=== PATIENT | male | born 1970 | race American Indian/Alaskan Native ===

== ENCOUNTER 2017-10-05 11:21 | Emergency (ER) | payer SELFPAY ==
[2017-10-05 11:38] VITALS: BP 115/72
[2017-10-05] MEDS ORDERED: FUL-GLO OP ONE ×2 (13:46→13:48)
[2017-10-05] MEDS ORDERED: BOOSTRIX IM ONE (13:46)
[2017-10-05] MEDS ORDERED: BSS 1 DROPS, TETRACAINE 0.5% 1 DROPS, FUL-GLO 0.6 MG OS ONE (13:46)
[2017-10-05] MEDS ORDERED: TETRACAINE 0.5% ONE (13:48)
[2017-10-05] MEDS ORDERED: BSS ONE (13:48)
--- NOTE | 2017-10-05 14:00 | Emergency Department Report ---
ED Eye Problem HPI - General Chief complaint: Eye Problems Stated complaint: LEFT EYE PAIN/BLURRY VISON Time Seen by Provider: 10/05/17 13:46 Source: patient Mode of arrival: Ambulatory Limitations: No Limitations - History of Present Illness Initial comments: 47-year-old male past medical history diabetes presents with complaint of accidental injury while at work. 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 This occurred 3 days ago. Patient denies any fevers or chills nausea or vomiting headache. Primarily complaining of blurry vision and itchiness left eye. Patient does not wear contact lenses or glasses. Patient states he irrigated immediately afterward. Unaware of tetanus status MD chief complaint: eye pain, eye redness, eye injury, vision change (left eye) Onset/Timin -: days(s) Onset Description: sudden Location: left eye Place: work If Injury: direct trauma (treatment branch hit left eye) Eye Symptoms: burning, redness, pain, foreign body sensation, itching, discharge , decreased vision, blurry vision, photophobia Severity scale (0 -10): 5 If Pain, Quality: burning, aching Consistency: constant Associated Symptoms: none Treatments Prior to Arrival: irrigated eye - Related Data Previous Rx's Medication Instructions Recorded Last Taken Type Erythromycin [Erythromycin Ophth 1 applic OP QID #1 tube 10/05/17 Unknown Rx Oint] Ibuprofen [Motrin] 800 mg PO Q8HR PRN #15 tablet 10/05/17 Unknown Rx Allergies Allergy/AdvReac Type Severity Reaction Status Date / Time No Known Allergies Allergy Verified 10/05/17 11:39 ED Review of Systems ROS: Stated complaint: LEFT EYE PAIN/BLURRY VISON Other details as noted in HPI Constitutional: denies: chills, fever Eyes: eye pain, eye discharge, vision change ENT: denies: ear pain, throat pain Respiratory: denies: cough, shortness of breath, wheezing Cardiovascular: denies: chest pain, palpitations Endocrine: no symptoms reported Gastrointestinal: denies: abdominal pain, nausea, diarrhea Genitourinary: denies: urgency, dysuria Musculoskeletal: denies: back pain, joint swelling, arthralgia Skin: denies: rash, lesions Neurological: denies: headache, weakness, paresthesias Psychiatric: denies: anxiety, depression Hematological/Lymphatic: denies: easy bleeding, easy bruising ED Past Medical Hx - Past Medical History Previous Medical History?: Yes Hx Diabetes: Yes - Surgical History Past Surgical History?: No - Social History Smoking Status: Never Smoker - Medications Home Medications: Home Medications Medication Instructions Recorded Confirmed Last Taken Type Erythromycin [Erythromycin Ophth 1 applic OP QID #1 tube 10/05/17 Unknown Rx Oint] Ibuprofen [Motrin] 800 mg PO Q8HR PRN #15 tablet 10/05/17 Unknown Rx ED Physical Exam - General Limitations: No Limitations General appearance: alert, in no apparent distress - Head Head exam: Present: atraumatic, normocephalic - Eye Eye exam: Present: normal appearance, PERRL, EOMI - Expanded Eye Exam Expanded Pupils: Regular, Round: Bilateral, Reactive: Bilateral Sclera/Conjunctival: Injection: Left (left sided corneal abrasion visible on fluorescein exam) Visual acuity (R) = 20/: 20 Visual acuity (L) = 20/: 50 - ENT ENT exam: Present: mucous membranes moist - Neck Neck exam: Present: normal inspection - Respiratory Respiratory exam: Present: normal lung sounds bilaterally. Absent: respiratory distress - Cardiovascular Cardiovascular Exam: Present: regular rate, normal rhythm. Absent: systolic murmur, diastolic murmur, rubs, gallop - GI/Abdominal GI/Abdominal exam: Present: soft, normal bowel sounds - Rectal Rectal exam: Present: deferred - Extremities Exam Extremities exam: Present: normal inspection - Back Exam Back exam: Present: normal inspection - Neurological Exam Neurological exam: Present: alert, oriented X3 - Psychiatric Psychiatric exam: Present: normal affect, normal mood - Skin Skin exam: Present: warm, dry, intact, normal color. Absent: rash ED Course Vital Signs 10/05/17 11:35 Temperature 98.4 F Pulse Rate 82 Respiratory 16 Rate Blood Pressure 115/72 O2 Sat by Pulse 96 Oximetry ED Medical Decision Making - Medical Decision Making A/P: Corneal abrasion left eye 1-easily visualized corneal abrasion to left cornea. Erythromycin ointment to left eye. Tetanus update today. Visual acuity 20/20 right eye, 20/50 left eye , 20/40 overall 2- case discussed with 3- Motrin when necessary 4- I emphasized the importance of follow-up with ophthalmology to the patient to mitigate any long-term vision loss. Patient stated he understood the importance of following up with ophthalmology. Patient's at bedside for this discussion Critical care attestation.: If time is entered above; I have spent that time in minutes in the direct care of this critically ill patient, excluding procedure time. ED Disposition Clinical Impression: Left corneal abrasion Qualifiers: Encounter type: initial encounter Qualified Code(s): S05.02XA - Injury of conjunctiva and corneal abrasion without foreign body, left eye, initial encounter Disposition: TO HOME OR SELFCARE Is pt being admited?: No Does the pt Need Aspirin: No Condition: Stable Instructions: Corneal Abrasion (ED) Prescriptions: Erythromycin [Erythromycin Ophth Oint] 1 applic OP QID #1 tube Ibuprofen [Motrin] 800 mg PO Q8HR PRN #15 tablet PRN Reason: Pain Referrals: LANIE MAGANA MD [Staff Physician] - 3-5 Days AKHIL PATIÑO MD [Staff Physician] - 3-5 Days Forms: Accompanied Note, Work/School Release Form(ED) Time of Disposition: 14:04
== END 2017-10-05 14:24 | disposition home or self-care (01) ==
LOC: ED 11:21
DX: S05.02XA Injury of conjunctiva and corneal abrasion without foreign body, left eye, initial encounter (principal); E11.9 Type 2 diabetes mellitus without complications; W22.09XA Striking against other stationary object, initial encounter; Y93.89 Activity, other specified; Y92.89 Other specified places as the place of occurrence of the external cause; Y99.8 Other external cause status
CPT/HCPCS: 90471; 90715; 99282